=== PATIENT | male | born 1980 | race African-American/Black ===

== ENCOUNTER 2020-11-03 13:59 | Inpatient (IN) | payer MEDICAID ==
[~2020-11-03] VITALS: Ht 180.3 cm; Wt 71.2 kg
[2020-11-03] MEDS ORDERED: furosemide (14:06)
[2020-11-03] MEDS ORDERED: hydrochlorothiazide (14:06)
[2020-11-03] MEDS ORDERED: FOLIC ACID 1 MG, THIAMINE HCL 100 MG, MVI, ADULT NO.1 10 ML in DEXTROSE 5% WATER 1,000 ML IV SCH ×4 (15:00)
[2020-11-03] MEDS ORDERED: DIAZEPAM 5 MG/ML 2ML CPJ IV ONE (15:15)
[2020-11-03 16:19] LABS: BASOPHILS % 0.8 % (0.0-2.0); EOSINOPHILS % 0.1 % (0.0-5.0); HEMATOCRIT. 48.2 % (42.0-52.0); HEMOGLOBIN. 16.2 g/dL (14.0-18.0); LYMPHOCYTES % 21.1 % (20.0-50.0); MEAN CORPUSCULAR VOLUME 100.9 fL (80.0-94.0); MEAN PLATELET VOLUME 6.8 fl (7.4-10.4); MONOCYTES % 6.9 % (2.0-8.0); NEUTROPHILS % 71.1 % (40.0-76.0); PLATELET 281 x1000/uL (130-400); RED BLOOD CELL COUNT 4.78 mill/uL (4.7-6.1); RED CELL DISTRIBUTION WIDTH 14.8 % (11.6-14.6)
[2020-11-03 16:24] LABS: CHLORIDE 95 mEq/L (98-107)
[2020-11-03 16:29] LABS: ETHANOL BLOOD 188 mg/dL
[2020-11-03] MEDS ORDERED: FOLIC ACID 1 MG, THIAMINE HCL 100 MG, MVI, ADULT NO.1 10 ML in DEXTROSE 5% WATER 1,000 ML IV ONE ×4 (17:00)
[2020-11-03 18:53] LABS: CLARITY URINE CLEAR (CLEAR); COLOR URINE YELLOW (YELLOW); KETONES URINE 4+ (NEGATIVE); LEUKOCYTE ESTERASE URINE NEGATIVE (NEGATIVE); NITRITE URINE NEGATIVE (NEGATIVE); OCCULT BLOOD URINE 1+ (NEGATIVE); PROTEIN URINE 3+ (NEGATIVE); SPECIFIC GRAVITY URINE 1.025 (1.005-1.030); UROBILINOGEN URINE 0.2 E.U./dL (0.2-1.0)
[2020-11-03 19:14] LABS: *AMPHETAMINES SCREEN URINE NEGATIVE (NEGATIVE); *BARBITURATES SCREEN URINE NEGATIVE (NEGATIVE); *BENZODIAZEPINES SCREEN URINE NEGATIVE (NEGATIVE); *COCAINE SCREEN URINE NEGATIVE (NEGATIVE)
[2020-11-03 19:15] LABS: CANNABINOID URINE SCREEN PRESUMTIVE POSITIVE (NEGATIVE); METHADONE URINE SCREEN NEGATIVE (NEGATIVE); OPIATES URINE SCREEN NEGATIVE (NEGATIVE); PHENCYCLIDINE URINE SCREEN NEGATIVE (NEGATIVE)
[2020-11-03] MEDS ORDERED: PHENOBARBITAL INJ 260 MG in SODIUM CHLORIDE 0.9% 100 ML IV ONE (20:00)
[2020-11-03 20:16] LABS: CHLORIDE 94 mEq/L (98-107)
[2020-11-03] MEDS ORDERED: PHENOBARBITAL SODIUM 130MG/ML 1ML IV SCH (21:45)
[2020-11-03] MEDS ORDERED: IPRATROPIUM/ALBUTEROL 0.5-3(2.5)MG/3ML NEB NEB PRN (23:30)
[2020-11-03] MEDS ORDERED: LORAZEPAM 2MG/ML CPJ IV PRN (23:30)
[2020-11-03] MEDS ORDERED: MAGNESIUM/ALUMINUM HYDROXIDE/SIMETHICONE 30ML UDC PO PRN (23:30)
[2020-11-03] MEDS ORDERED: ONDANSETRON HCL 4MG/2ML INJ IV PRN (23:30)
[2020-11-03] MEDS ORDERED: CLONIDINE 0.1MG TABLET PO PRN (23:30)
[2020-11-03] MEDS ORDERED: DOCUSATE SODIUM 100MG CAPSULE PO PRN (23:30)
[2020-11-04] VITALS (7 sets, daily range): BP systolic 124–155; BP diastolic 82–99
[2020-11-04 00:50] LABS: BETA HYDROXYBUTYRATE 3.4 mMol/L (0.0-0.3)
[2020-11-04] MEDS ORDERED: MVI, ADULT NO.1 10 ML, FOLIC ACID 1 MG, THIAMINE HCL 100 MG in SODIUM CHLORIDE 0.9% 1,0... IV NR ×8 (01:00→14:00)
[2020-11-04] MEDS: CHLORDIAZEPOXIDE 25MG CAPSULE PO SCH ×3 (06:51→21:51)
[2020-11-04] MEDS ORDERED: PHENOBARBITAL SODIUM 130MG/ML 1ML IV SCH (09:00)
[2020-11-04] MEDS ORDERED: FOLIC ACID 1MG TABLET PO SCH (09:00)
[2020-11-04] MEDS: THIAMINE HCL 100MG TABLET PO SCH (09:00)
[2020-11-04] MEDS ORDERED: MULTIVITAMINS,THER W-MINERALS TABLET PO SCH (09:00)
[2020-11-04] MEDS ORDERED: HEPARIN 5000 UNITS/ML VIAL SUBCUT SCH (09:00)
[2020-11-04 09:31] LABS: CHLORIDE 99 mEq/L (98-107)
[2020-11-04 09:32] LABS: BASOPHILS % 0.5 % (0.0-2.0); EOSINOPHILS % 0.3 % (0.0-5.0); HEMATOCRIT. 43.9 % (42.0-52.0); HEMOGLOBIN. 15.1 g/dL (14.0-18.0); LYMPHOCYTES % 16.7 % (20.0-50.0); MEAN CORPUSCULAR HEMOGLOBIN 34.4 pg (28.0-32.0); MEAN CORPUSCULAR VOLUME 100.2 fL (80.0-94.0); MEAN PLATELET VOLUME 7.1 fl (7.4-10.4); MONOCYTES % 9.1 % (2.0-8.0); NEUTROPHILS % 73.4 % (40.0-76.0); PLATELET 228 x1000/uL (130-400); RED BLOOD CELL COUNT 4.38 mill/uL (4.7-6.1); RED CELL DISTRIBUTION WIDTH 14.8 % (11.6-14.6)
[2020-11-04 09:38] LABS: LDL CHOLESTEROL 74 mg/dL (5-100)
[2020-11-04 09:39] LABS: CREATINE KINASE 80 IU/L (39-308); HDL CHOLESTEROL 45 mg/dL (40-59)
[2020-11-04] MEDS: SODIUM CHLORIDE 0.9% 1,000 ML IV SCH ×2 (12:27→23:20)
[2020-11-04 12:56] LABS: HEPATITIS B SURFACE ANTIGEN NEGATIVE
[2020-11-04 13:24] LABS: HEPATITIS A AB IGM NEGATIVE (NEGATIVE)
[2020-11-04 16:19] LABS: CREATINE KINASE 76 IU/L (39-308)
[2020-11-04 16:20] LABS: CREATINE KINASE MB FRACTION 1.6 ng/mL (0.5-3.6)
[2020-11-04] MEDS: ACETAMINOPHEN 325MG TABLET PO PRN (21:51)
[2020-11-04] MEDS: LEVETIRACETAM 500MG TABLET PO SCH (21:52)
[2020-11-05] VITALS (8 sets, daily range): BP systolic 117–138; BP diastolic 70–97
[2020-11-05] MEDS: ACETAMINOPHEN 325MG TABLET PO PRN (06:42)
[2020-11-05] MEDS: CHLORDIAZEPOXIDE 25MG CAPSULE PO SCH ×2 (06:43→13:16)
[2020-11-05 06:52] LABS: BASOPHILS % 0.5 % (0.0-2.0); HEMATOCRIT. 40.9 % (42.0-52.0); HEMOGLOBIN. 14.2 g/dL (14.0-18.0); LYMPHOCYTES % 21.8 % (20.0-50.0); MEAN CORPUSCULAR HEMOGLOBIN 34.7 pg (28.0-32.0); MEAN CORPUSCULAR VOLUME 100.3 fL (80.0-94.0); MEAN PLATELET VOLUME 7.2 fl (7.4-10.4); MONOCYTES % 5.4 % (2.0-8.0); NEUTROPHILS % 71.3 % (40.0-76.0); PLATELET 197 x1000/uL (130-400); RED BLOOD CELL COUNT 4.08 mill/uL (4.7-6.1); RED CELL DISTRIBUTION WIDTH 14.5 % (11.6-14.6)
[2020-11-05 06:55] LABS: PROTHROMBIN TIME 10.4 sec (9.6-11.0)
[2020-11-05 07:12] LABS: CHLORIDE 101 mEq/L (98-107)
[2020-11-05 07:20] LABS: PHOSPHORUS 1.8 mg/dL (2.5-4.9)
[2020-11-05 07:48] LABS: FOLIC ACID (FOLATE) SERUM 13.6 ng/mL (>5.38)
[2020-11-05] MEDS: THIAMINE HCL 100MG TABLET PO SCH (08:32)
[2020-11-05] MEDS: LEVETIRACETAM 500MG TABLET PO SCH (08:32)
[2020-11-05] MEDS ORDERED: MULTIVITAMINS,THER W-MINERALS TABLET PO SCH (09:00)
[2020-11-05] MEDS ORDERED: FOLIC ACID 1MG TABLET PO SCH (09:00)
[2020-11-05] MEDS ORDERED: KEPP500 PO (10:45)
[2020-11-05] MEDS ORDERED: FOLI-43 PO (10:45)
[2020-11-05] MEDS ORDERED: THIA100T72 PO (10:45)
[2020-11-05] MEDS ORDERED: L25 PO (10:45)
[2020-11-05] MEDS ORDERED: MULT-230 MT (10:45)
[2020-11-06 08:06] LABS: HIV SCREEN 4G Non Reactive (Non Reactive)
== END 2020-11-05 16:00 | disposition home or self-care (01) | DRG 53 ==
LOC: ER 13:59 → MICUSO 21:31 → 5EST 11-04 08:25
PROVIDERS: ADMIT Internal Medicine; ATTEND Internal Medicine
DX: G40.909 Epilepsy, unspecified, not intractable, without status epilepticus (principal); E16.2 Hypoglycemia, unspecified; F10.139 Alcohol abuse with withdrawal, unspecified; G92 Toxic encephalopathy; I10 Essential (primary) hypertension; R74.01 Elevation of levels of liver transaminase levels; R00.0 Tachycardia, unspecified; R80.9 Proteinuria, unspecified; F12.90 Cannabis use, unspecified, uncomplicated; E87.1 Hypo-osmolality and hyponatremia; Y90.6 Blood alcohol level of 120-199 mg/100 ml; Z87.828 Personal history of other (healed) physical injury and trauma; R82.4 Acetonuria
CPT/HCPCS: 36415; 70551; 71045; 76700; 80048; 80053; 80061; 80076; 80305; 80307; 80320; 80329; 81003; 82010; 82550; 82553; 82607; 82746; 82962; 83735; 84100; 84443; 84484; 85025; 86705; 86709; 86803; 87340; 87389; 93005; 99291; J2560; J3411; J3490; J7030; J7050; J7070; G0480